=== PATIENT | female | born 1980 | race Caucasian/White ===

== ENCOUNTER 2016-08-16 14:25 | Emergency (ER) | payer MEDICAID, OTHER ==
[~2016-08-16] VITALS: Ht 167.6 cm; Wt 59.1 kg
[~2016-08-16 14:25] MED LIST: ALPR1TAB2; CLON-412 PO
[2016-08-16 14:32] VITALS: Ht 167.6 cm; Wt 59.1 kg
--- NOTE | 2016-08-16 14:34 | ERD ---
ER Documentation Chief Complaint Date/Time DATE: 08/16/16 TIME: 14:30 Chief Complaint Altered HPI Patient is an approximately 36-year-old female who presents altered. She was found on the street and a bystander called 911. She is well-known to the train director staff who brought her in. The patient has a history of alcohol abuse and frequently visits our emergency department for alcohol intoxication. Her eyes are open but she is not following commands or answering questions at this time. She appears to be protecting her own airway. I cannot obtain history otherwise. ROS All systems reviewed and are negative except as per history of present illness. Medications Home Meds Reported Medications Alprazolam* (Xanax*) 1 Mg Tab 02/11/11 Clonazepam* (Klonopin*) 1 Mg Tablet, 1 MG PO DAILY 02/11/11 Allergies Allergies: Coded Allergies: No Known Drug Allergies (Verified Adverse Reaction, Unknown, 02/11/11) PMhx/Soc History of Surgery: No Anesthesia Reaction: No Hx Neurological Disorder: Yes (HX SEIZURES) Hx Respiratory Disorders: No Hx Cardiac Disorders: No Hx Psychiatric Problems: Yes (HX ADD) Hx Miscellaneous Medical Probl: No Hx Alcohol Use: Yes (ETOH ABUSE) Hx Substance Use: Yes (HX CRYSTAL METH ABUSE) Hx Tobacco Use: No FmHx Unable to obtain Physical Exam Physical Exam Const: Altered Head: Atraumatic Eyes: Normal Conjunctiva ENT: Normal External Ears, Nose and Mouth. Neck: Full range of motion..~ No meningismus. Resp: Clear to auscultation bilaterally Cardio: Regular rate and rhythm, no murmurs Abd: Soft, non tender, non distended. Normal bowel sounds Skin: No petechiae or rashes Back: No midline or flank tenderness Ext: No cyanosis, or edema Neur: Awake with eyes open but not responding to commands or speaking at this time Procedures/MDM CT brain pending at this time. Accu-Chek was normal by paramedics and we will recheck in the emergency department. Patient is an approximately 36-year-old female who presents with altered mental status. She was brought in by ambulance. She has a history of alcohol abuse and I believe that the most likely cause of her altered mental status is alcohol intoxication. Her Accu-Chek by paramedics did not show signs of hypo- or hyperglycemia. CT scan of the brain is pending to rule out skull fracture or intracranial hemorrhage. I believe that the CT scan is negative she will need a period of observation to sober clinically and then will be discharged. She should not drink alcohol to excess in the future. She required multiple airway examinations while in the emergency department and she did not have any signs of airway decompensation. Critical Care: Time: 35 minutes excluding all billable procedures. Treatments/Evaluations: Close monitoring and treatment of unstable vital signs, cardiorespiratory, and neurologic status, while maintaining tight balance of fluid, respiratory, and cardiac interventions. Departure Diagnosis: Primary Impression: Alcohol intoxication Complication of substance-induced condition: with delirium Qualified Code: F10.121 - Alcohol intoxication, with delirium Additional Impression: Altered mental status Altered mental status type: unspecified Qualified Code: R41.82 - Altered mental status, unspecified altered mental status type Condition: RICARDO Colon MD Aug 16, 2016 14:33
--- NOTE | 2016-08-16 15:14 | RADRPT ---
PROCEDURE: CT Brain without contrast. CLINICAL INDICATION: Altered mental status TECHNIQUE: A CT of the brain was performed on a multidetector CT scanner utilizing axial sections from the skull base through the vertex without contrast. Images were reviewed on a high-resolution ipsy workstation. Exam CTDI = 44.88 mGy and the DLP = 630.20 mGy-cm. One or more of the following dose reduction techniques were used: Automated exposure control Adjustment of the mA and/or kV according to patient size. Use of iterative reconstruction technique. COMPARISON: None available FINDINGS: Mild diffuse cerebral and cerebellar atrophy is present. There is proportionate dilatation of the v entricular system and sulci in a symmetric fashion. There is prominence of the extraaxial spaces sec ondary to atrophy. There is no evidence of intracranial hemorrhage, mass effect or midline shift. N o abnormal intra-axial or extra-axial fluid collections are seen. The density of the brain is kiana l and the zacarias/white matter differentiation is well preserved. The osseous structures are unremark able. Paranasal sinuses are clear. Vascular calcifications are identified. IMPRESSION: The study is somewhat limited at the vertex due to motion artifacts. 1. No intracranial hemorrhage, mass effect or midline shift. 2. Mild generalized atrophy, prominent for the patient's age. 3. Mild intracranial atherosclerosis. RPTAT: BB .Wilmer Munson MD, Date Time Electronically viewed and signed by .Wilmer Munson MD, on 08/16/2016 15:14 .O/
[2016-08-16 16:30] VITALS: BP 131/96; PULSE 89; RESP 16
== END 2016-08-16 17:24 | disposition home or self-care (01) ==
LOC: E/R 14:25
DX: F10.121 Alcohol abuse with intoxication delirium (principal)
CPT/HCPCS: 70450; Z7502